=== PATIENT | female | born 1980 | race African-American/Black ===

== ENCOUNTER 2018-09-06 00:13 | Emergency (ER) | payer MEDICARE, MEDICAID ==
[2018-09-06] MEDS ORDERED: LIDOCAINE 2% VISCOUS SOLN 20 ML UDCUP PO ONE (01:15)
[2018-09-06] MEDS ORDERED: MAG HYDROX/AL HYDROX/SIMETH SUSP 30 ML UDCUP PO ONE (01:15)
[2018-09-06] MEDS ORDERED: METOCLOPRAMIDE HCL ORAL SOLN 10 MG/10 ML UDCUP PO ONE (01:15)
--- NOTE | 2018-09-06 01:24 | ER Document Report ---
ED General - General Chief Complaint: Abdominal Pain Stated Complaint: ABDOMINAL PAIN Time Seen by Provider: 09/06/18 01:07 Mode of Arrival: Ambulatory Information source: Patient Notes: 38-year-old female presents emergency department complaints of epigastric abdominal pain that started around 7 PM. She describes the pain as a sharp and stabbing sensation located in the epigastric area. She denies any radiation of the pain. She denies any alleviating or exacerbating factors. She has not taken any medication prior to arrival. Patient states that she has a history of hypertension but denies any other medications. She denies any surgeries. Patient states that over the last couple of days she has had some intermittent chest pain associated with the epigastric pain. Denies nausea, vomiting, diarrhea, constipation, dysuria, hematuria. She does admit to having some increased urine frequency. LMP in June. - HPI Onset: This evening Onset/Duration: Persistent Quality of pain: Sharp, Stabbing Severity: Mild Associated symptoms: None Exacerbated by: Denies Relieved by: Denies Similar symptoms previously: No Recently seen / treated by doctor: No - Related Data Allergies/Adverse Reactions: Penicillins Adverse Reaction (Verified 09/06/18 01:19) Past Medical History - General Information source: Patient - Social History Smoking Status: Current Every Day Smoker Family History: Reviewed & Not Pertinent Review of Systems - Review of Systems Constitutional: No symptoms reported EENT: No symptoms reported Cardiovascular: Chest pain Respiratory: No symptoms reported Gastrointestinal: Abdominal pain Genitourinary: Frequency Female Genitourinary: No symptoms reported Musculoskeletal: No symptoms reported Skin: No symptoms reported Hematologic/Lymphatic: No symptoms reported Neurological/Psychological: No symptoms reported -: Yes All other systems reviewed and negative Physical Exam - Vital signs Vitals: Temp Pulse Resp BP Pulse Ox 97.7 F 90 19 149/100 H 98 09/06/18 00:20 09/06/18 00:20 09/06/18 00:20 09/06/18 00:20 09/06/18 00:20 - Notes Notes: PHYSICAL EXAMINATION: GENERAL: Well-appearing, well-nourished and in no acute distress. HEAD: Atraumatic, normocephalic. EYES: Pupils equal round and reactive to light, extraocular movements intact, conjunctiva are normal. ENT: Nares patent, oropharynx clear without exudates. Moist mucous membranes. NECK: Normal range of motion, supple without lymphadenopathy LUNGS: Breath sounds clear to auscultation bilaterally and equal. No wheezes rales or rhonchi. HEART: Regular rate and rhythm without murmurs ABDOMEN: Soft, tenderness to palpation in the epigastric area, LUQ. No rebound or guarding. Female : Patient declines pelvic exam. Musculoskeletal: Normal range of motion, no pitting or edema. No cyanosis. NEUROLOGICAL: Cranial nerves grossly intact. Normal speech, normal gait. Normal sensory, motor exams PSYCH: Normal mood, normal affect. SKIN: Warm, Dry, normal turgor, no rashes or lesions noted. Course - Re-evaluation Re-evalutation: 09/06/18 01:47 EKG: Ventricular rate 79, HI interval 172, castration 76, QTc 413, sinus rhythm, no ST segment elevation or depression. 09/06/18 04:00 Labs and imaging obtained. test came back positive. Patient informed of these findings. Says that she had a negative test in June. She keeps track of her menstrual cycles and when has intercourse. Patient says she last had intercourse on 08/20/18. Patient denies vaginal bleeding. She was given a GI cocktail for her epigastric discomfort on arrival. On re-evaluation, patient says this alleviated her pain. Currently pain free. Patient upset because she hasn't gone for her US yet. Patient next to go to US. She says she 'll stay for the US. Bacteria in the urine. I will start keflex. Patient says her allergy to penicillin was pain. No anaphylaxis symptoms. I instructed the patient to follow up with OB, to take the medication as directed, and to return for worsening symptoms. 09/06/18 04:19 Patient turned over to Dr. Danielle with US pending. - Vital Signs Vital signs: Temp Pulse Resp BP Pulse Ox 97.7 F 90 19 149/100 H 98 09/06/18 00:20 09/06/18 00:20 09/06/18 00:20 09/06/18 00:20 09/06/18 00:20 - Laboratory Result Diagrams: 09/06/18 01:30 09/06/18 01:30 Laboratory results interpreted by me: 09/06/18 09/06/18 09/06/18 01:30 01:30 01:30 WBC 10.9 H Hgb 10.2 L Hct 32.1 L MCV 64 L MCH 20.3 L MCHC 31.6 L RDW 18.7 H Chloride 108 H AST 12 L Beta HCG, Quant Urine Urobilinogen 2.0 H Ur Leukocyte Esterase TRACE H Urine Ascorbic Acid 40 H Urine HCG, Qual POSITIVE H 09/06/18 01:30 WBC Hgb Hct MCV MCH MCHC RDW Chloride AST Beta HCG, Quant 712247.00 H Urine Urobilinogen Ur Leukocyte Esterase Urine Ascorbic Acid Urine HCG, Qual Discharge - Discharge Clinical Impression: Antepartum asymptomatic bacteriuria Qualifiers: Weeks of gestation: unspecified Qualified Code(s): Z34.90 - Encounter for supervision of normal , unspecified, unspecified trimester GERD (gastroesophageal reflux disease) Qualifiers: Esophagitis presence: esophagitis presence not specified Qualified Code(s): K21.9 - Gastro-esophageal reflux disease without esophagitis Condition: Good Disposition: HOME, SELF-CARE Instructions: Reflux Disease (GERD) ([facility]) Prescriptions: Cephalexin Monohydrate [Keflex 500 mg Capsule] 500 mg PO BID 5 Days capsule Referrals: AGAPITO PITTS MD [Primary Care Provider] - Follow up as needed GARRISON MARY MD [ACTIVE STAFF] - Follow up as needed
[2018-09-06 01:55] LABS: ABSOLUTE BASOPHILS # (AUTO) 0.1 10^3/uL (0.0-0.2); ABSOLUTE EOSINOPHILS # (AUTO) 0.1 10^3/uL (0.0-0.6); ABSOLUTE LYMPHOCYTES (AUTO) 2.2 10^3/uL (0.5-4.7); ABSOLUTE MONOCYTES (AUTO) 0.9 10^3/uL (0.1-1.4); ABSOLUTE NEUT (AUTO) 7.7 10^3/uL (1.7-8.2); BASOPHILS % (AUTO) 0.6 % (0-2); EOSINOPHILS % (AUTO) 1.3 % (0-6); HEMATOCRIT 32.1 % (36.0-47.0); HEMOGLOBIN 10.2 g/dL (12.0-15.5); LYMPHOCYTES % (AUTO) 19.8 % (13-45); MEAN CORPUSCULAR HEMOGLOBIN 20.3 pg (27.0-33.4); MEAN CORPUSCULAR HGB CONC 31.6 g/dL (32.0-36.0); MONOCYTES % (AUTO) 8.2 % (3-13); PLATELET COUNT 315 10^3/uL (150-450); RED CELL DISTRIBUTION WIDTH 18.7 % (11.5-14.0); SEGMENTED NEUTROPHILS % (AUTO) 70.1 % (42-78); TOTAL CELLS COUNTED % (AUTO) 100 %; WHITE BLOOD COUNT 10.9 10^3/uL (4.0-10.5)
[2018-09-06 01:58] LABS: APPEARANCE,URINE CLOUDY; BILIRUBIN,URINE NEGATIVE (NEGATIVE); COLOR,URINE YELLOW; GLUCOSE, URINE NEGATIVE (NEGATIVE); KETONES,URINE NEGATIVE (NEGATIVE); LEUKOCYTE ESTERASE,URINE TRACE (NEGATIVE); NITRITE,URINE NEGATIVE (NEGATIVE); PROTEIN,URINE NEGATIVE (NEGATIVE)
[2018-09-06 02:07] LABS: ALANINE AMINOTRANSFERASE 13 U/L (9-52); ALBUMIN 3.7 g/dL (3.5-5.0); ALKALINE PHOSPHATASE 62 U/L (38-126); ANION GAP 7 (5-19); ASPARTATE AMINO TRANSFERASE 12 U/L (14-36); BILIRUBIN,DIRECT 0.2 mg/dL (0.0-0.4); BILIRUBIN,TOTAL 0.3 mg/dL (0.2-1.3); BLOOD UREA NITROGEN 16 mg/dL (7-20); CALCIUM 9.4 mg/dL (8.4-10.2); CARBON DIOXIDE 24 mmol/L (22-30); CHLORIDE 108 mmol/L (98-107); GLUCOSE 90 mg/dL (75-110); LIPASE 177.1 U/L (23-300); POTASSIUM 4.5 mmol/L (3.6-5.0); SODIUM 138.7 mmol/L (137-145); TOTAL PROTEIN 6.9 g/dL (6.3-8.2)
[2018-09-06 02:26] LABS: OVALOCYTES SLIGHT; PLATELET COMMENT ADEQUATE; TEAR DROP CELLS SLIGHT
[2018-09-06 02:27] LABS: ANISOCYTOSIS 2+; POIKILOCYTOSIS SLIGHT; POLYCHROMASIA SLIGHT
[2018-09-06 02:28] LABS: MEAN CORPUSCULAR VOLUME 64 fl (80-97)
--- NOTE | 2018-09-06 04:52 | RADIOLOGY REPORT (SQ) ---
EXAM DESCRIPTION: US TRANSVAGINAL COMPLETED DATE/TME: 09/06/2018 02:20 CLINICAL HISTORY: 38 years, Female, abdominal pain COMPARISON: None. TECHNIQUE: Transverse and longitudinal transvaginal and transabdominal sonographic images of the pelvis and a first trimester patient LIMITATIONS: None. FINDINGS: The uterus measures 12.5 x 12.4 x 11.2 cm. There is a single, live intrauterine gestation with current ultrasound age 10 weeks 3 days. pole is present with heart tones obtained at 175 bpm. Assessment of the placenta and amniotic fluid volume not performed due to early gestational age. Heterogeneous echotexture to the maternal myometrium could reflect fibroid change. The maternal left ovary is not well seen likely due to its position in the pelvis. The right ovary measures 3.2 x 2.5 x 1.9 cm. Probable corpus luteal cyst of the right ovary measuring 2.2 x 2.1 cm. Normal flow to the right ovary. No free fluid.. IMPRESSION: Single live intrauterine gestation with current ultrasound age 10 weeks 3 days. Nonemergent follow-up recommended copyright 2010 [employer]- All Rights Reserved
[2018-09-06 05:38] VITALS: BP 130/72
--- NOTE | 2018-09-06 07:58 | EKG REPORT ---
SEVERITY:- NORMAL ECG - SINUS RHYTHM : Confirmed by: Michele Genao MD 06-Sep-2018 07:57:12
[2018-09-06 15:39] LABS: PATH REVIEW PATHOLOGIST REVIEWED
== END 2018-09-06 05:39 | disposition home or self-care (01) ==
LOC: ER 00:13
DX: O99.619 Diseases of the digestive system complicating pregnancy, unspecified trimester (principal); K21.9 Gastro-esophageal reflux disease without esophagitis; O26.899 Other specified pregnancy related conditions, unspecified trimester; R82.71 Bacteriuria; R10.13 Epigastric pain; R07.9 Chest pain, unspecified; R35.0 Frequency of micturition; O99.330 Smoking (tobacco) complicating pregnancy, unspecified trimester; Z3A.00 Weeks of gestation of pregnancy not specified
CPT/HCPCS: 93005; 99284; 36415; 84702; 83690; 85025; 81025; 80053; 81001; 84484; 76817; 93976; 93010; J3490; A9270

== ENCOUNTER 2019-03-02 10:39 | Outpatient (CLI) | payer MEDICARE, MEDICAID | END 2019-03-02 11:23 | disposition home or self-care (01) | LOC: LC 10:39 | PROVIDERS: ATTEND Obstetrics & Gynecology | PROC: 4A1HXCZ Monitoring of Products of Conception, Cardiac Rate, External Approach (ICD-10-PCS; principal; 2019-03-02) | DX: O09.523 Supervision of elderly multigravida, third trimester (principal); Z3A.35 35 weeks gestation of pregnancy | CPT/HCPCS: 59025 ==

== ENCOUNTER 2019-03-09 10:33 | Outpatient (CLI) | payer MEDICARE, MEDICAID ==
[2019-03-09 12:13] LABS: ABSOLUTE EOSINOPHILS # (AUTO) 0.1 10^3/uL (0.0-0.6); ABSOLUTE LYMPHOCYTES (AUTO) 1.4 10^3/uL (0.5-4.7); ABSOLUTE MONOCYTES (AUTO) 0.9 10^3/uL (0.1-1.4); ABSOLUTE NEUT (AUTO) 9.4 10^3/uL (1.7-8.2); BASOPHILS % (AUTO) 0.3 % (0-2); EOSINOPHILS % (AUTO) 0.8 % (0-6); HEMATOCRIT 35.1 % (36.0-47.0); HEMOGLOBIN 10.9 g/dL (12.0-15.5); LYMPHOCYTES % (AUTO) 11.6 % (13-45); MEAN CORPUSCULAR HEMOGLOBIN 23.5 pg (27.0-33.4); MEAN CORPUSCULAR VOLUME 76 fl (80-97); MONOCYTES % (AUTO) 7.4 % (3-13); PLATELET COUNT 282 10^3/uL (150-450); RED BLOOD COUNT 4.63 10^6/uL (3.72-5.28); RED CELL DISTRIBUTION WIDTH 17.4 % (11.5-14.0); SEGMENTED NEUTROPHILS % (AUTO) 79.9 % (42-78); TOTAL CELLS COUNTED % (AUTO) 100 %; WHITE BLOOD COUNT 11.8 10^3/uL (4.0-10.5)
[2019-03-09 12:28] LABS: ALANINE AMINOTRANSFERASE 17 U/L (9-52); ALBUMIN 2.9 g/dL (3.5-5.0); ALKALINE PHOSPHATASE 154 U/L (38-126); ANION GAP 10 (5-19); ASPARTATE AMINO TRANSFERASE 19 U/L (14-36); BILIRUBIN,DIRECT 0.2 mg/dL (0.0-0.4); BILIRUBIN,TOTAL 0.2 mg/dL (0.2-1.3); BLOOD UREA NITROGEN 10 mg/dL (7-20); CARBON DIOXIDE 19 mmol/L (22-30); CHLORIDE 106 mmol/L (98-107); GLUCOSE 105 mg/dL (75-110); POTASSIUM 3.9 mmol/L (3.6-5.0); TOTAL PROTEIN 5.8 g/dL (6.3-8.2)
--- NOTE | 2019-03-09 12:50 | Non Stress Test Report ---
Non Stress Test Datetime Report Generated by CPN: 03/09/2019 12:50 DEMOGRAPHIC EGA NST: 36.5 INDICATION Indication for Study: Ordered by Provider VITAL SIGNS Temperature - NST: 98.0 RESP - NST: 16 MONITORING Monitor Explained: Monitor Explained; Test Explained; Patient Verbalized Understanding Time on Monitor: 03/09/2019 10:50 Time off Monitor: 03/09/2019 11:27 NST Duration: 37 NST INTERVENTIONS NST Interventions: PO Hydration Physician Notified NST: A. Christensen CNM BABY A Movement : Present Contraction Frequency : none FHR Baseline : 145 Accelerations : 15X15 Decelerations : None Variability : Moderate 6-25bpm NST Review: Meets Criteria for Reactive NST NST Review and Verified By : Irene Simental RN NST Results: Reactive NST REPORT Report Trigger: Send Report
[2019-03-12 14:07] LABS: URINE PROTEIN 9.8 mg/dL (<12)
[2019-03-12 14:12] LABS: 24 HOUR URINE PROTEIN RESULT 134 mg/day (42-225)
== END 2019-03-09 12:45 | disposition home or self-care (01) ==
LOC: LC 10:33
PROVIDERS: ATTEND Obstetrics & Gynecology Gynecology
PROC: 4A1HXCZ Monitoring of Products of Conception, Cardiac Rate, External Approach (ICD-10-PCS; principal; 2019-03-09)
DX: O10.913 Unspecified pre-existing hypertension complicating pregnancy, third trimester (principal); O09.523 Supervision of elderly multigravida, third trimester; Z3A.36 36 weeks gestation of pregnancy
CPT/HCPCS: 36415; 59025; 80053; 83615; 84156; 84550; 85025

== ENCOUNTER 2019-03-26 22:30 | Inpatient (IN) | payer MEDICARE, MEDICAID ==
[2019-03-26] MEDS ORDERED: DINOPROSTONE 10 MG VAGINAL INSERT.SR ONE (23:18)
[2019-03-26 23:26] LABS: ABSOLUTE BASOPHILS # (AUTO) 0.1 10^3/uL (0.0-0.2); ABSOLUTE EOSINOPHILS # (AUTO) 0.1 10^3/uL (0.0-0.6); ABSOLUTE LYMPHOCYTES (AUTO) 1.8 10^3/uL (0.5-4.7); ABSOLUTE MONOCYTES (AUTO) 1.2 10^3/uL (0.1-1.4); ABSOLUTE NEUT (AUTO) 9.6 10^3/uL (1.7-8.2); BASOPHILS % (AUTO) 0.9 % (0-2); HEMOGLOBIN 10.9 g/dL (12.0-15.5); LYMPHOCYTES % (AUTO) 13.7 % (13-45); MEAN CORPUSCULAR HEMOGLOBIN 23.9 pg (27.0-33.4); MEAN CORPUSCULAR HGB CONC 31.9 g/dL (32.0-36.0); MEAN CORPUSCULAR VOLUME 75 fl (80-97); MONOCYTES % (AUTO) 9.3 % (3-13); PLATELET COUNT 258 10^3/uL (150-450); RED BLOOD COUNT 4.55 10^6/uL (3.72-5.28); RED CELL DISTRIBUTION WIDTH 17.4 % (11.5-14.0); SEGMENTED NEUTROPHILS % (AUTO) 75.1 % (42-78); TOTAL CELLS COUNTED % (AUTO) 100 %; WHITE BLOOD COUNT 12.8 10^3/uL (4.0-10.5)
[2019-03-27] MEDS ORDERED: OXYTOCIN/NORMAL SALINE 20 UNIT/1,000 ML RTUINJ IV PRN ×2 (01:19→18:33)
[2019-03-27] MEDS ORDERED: ACETAMINOPHEN 325 MG TABLET PO PRN ×2 (01:19→18:33)
[2019-03-27] MEDS ORDERED: MAG HYDROX/AL HYDROX/SIMETH SUSP 30 ML UDCUP PO PRN (01:19)
[2019-03-27] MEDS ORDERED: DINOPROSTONE 10 MG VAGINAL INSERT.SR PV ONE (01:19)
[2019-03-27] MEDS ORDERED: RINGERS SOLUTION,LACTATED 300 ML IV ONE (01:19)
[2019-03-27] MEDS ORDERED: ZOLPIDEM TARTRATE 5 MG TABLET PO PRN (01:19)
[2019-03-27] MEDS: RINGERS SOLUTION,LACTATED 1,000 ML IV PRN ×2 (03:41→23:38)
--- NOTE | 2019-03-27 04:18 | Admission Physical ---
Datetime Report Generated by CPN: 03/27/2019 04:18 CURRENT ADMISSION Chief Complaint: Scheduled Induction of Labor Indication for Induction: Gestational HTN Admit Impression : Term, Intrauterine ; Induction of Labor Admit Plan: Admit to Unit; Initiate Labor Induction Protocol ALLERGIES Medication Allergies: Yes Medication Allergies: Penicillins (03/26/2019) Latex: No Latex Allergies Food Allergies: None Environmental Allergies: None OBSTETRICAL HISTORY EDC: 04/01/2019 00:00 : 4 Para: 2 Term: 2 : 0 SAB: 1 IAB: 1 Ectopic: 0 Livin Cesareans: 0 VBACs: 0 Multiple Births: 0 Gestational Diabetes: No Rh Sensitization: No Incompetent Cervix: No SHAGUFTA: No Infertility: No ART Treatment: No Uterine Anomaly: No IUGR: No Hx Previous C/S: No Macrosomia: No Hx Loss/Stillborn: No PIH: Yes Hx : No Placenta Previa/Abruption: No Depression/PP Depression: No PTL/PROM: No Post Hemorrhage: No Current Procedures: Ultrasound; NST Obstetrical History Comments: G1: 1994 SAB G2: 1995 39 wks 9lbs male vaginal G3: 2001 42 wks 8lbs male vaginal G4 - current , chronic hypertension on labetalol SEE RECORDS Alcohol: No Marijuana : No Cocaine: No Other Illicit Drugs: No Cigarettes: Never Smoker. 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: No Heart Disease: No Hosp/Surgery: No Autoimmune Disorder: No Anesthetic Complications: No Kidney Disease: No Abnormal Pap Smear: No Neuro/Epilepsy: No Psychiatric Disorders: No Other Medical Diseases: No Hepatitis/Liver Disease: No Significant Family History: No Varicosities/Phlebitis: No Trauma/Violence : No Thyroid Dysfunction: No Medical History Comments: MS, htn, ADD, crohn's disease, obesity, leiomyoma of uterus, thalassemia minor INFECTIOUS HISTORY Gonorrhea: No Genital Herpes: No Chlamydia: No Tuberculosis: No Syphilis: No Hepatitis: No HIV/AIDS Exposure: No Rash or Viral Illness: No HPV: No PHYSICAL EXAM General: Normal HEENT: Normal Neurologic: Normal Thyroid: Normal Heart: Normal Lungs: Normal Breast: Deferred Back: Normal Abdomen: Normal Genitourinary Exam: Normal Extremities: Normal DTRs: Normal Pelvic Type: Adequate Vital Signs: Reviewed VAGINAL EXAM Dilatation: 1 Effacement: 70 Station: -1 MEMBRANES Pooling: Negative Membranes: Intact FETUS A EGA: 39.2 Monitoring: External US FHR- Baseline: 130 Presentation: Vertex Admit Comment: Pt reports MS, wants btl PLANS FOR LABOR AND DELIVERY Labor and Delivery: None Pain Management: Epidural Feeding Preference: Formula Benefit of Breast Feed Discussed: Yes Circumcision: N/A INFORMED CONSENT Signature: with User ID: [email or web address]
[2019-03-27 06:37] LABS: URINE AMPHETAMINES SCREEN NEGATIVE; URINE BARBITURATES SCREEN NEGATIVE; URINE BENZODIAZEPINES SCREEN NEGATIVE; URINE COCAINE SCREEN NEGATIVE; URINE MARIJUANA (THC) SCREEN NEGATIVE; URINE METHADONE SCREEN NEGATIVE; URINE PHENCYCLIDINE SCREEN NEGATIVE
[2019-03-27] MEDS ORDERED: LABETALOL HCL 200 MG TABLET PO ONE (08:58)
[2019-03-27] MEDS ORDERED: LABETALOL HCL 200 MG TABLET ONE (09:00)
[2019-03-27] MEDS ORDERED: OXYTOCIN/NORMAL SALINE 20 UNIT/1,000 ML RTUINJ ONE ×2 (11:06→19:36)
[2019-03-27] MEDS ORDERED: LIDOCAINE 1% INJ-PF (10 MG/ML) 30 ML SDV ONE (11:06)
[2019-03-27] MEDS ORDERED: MISOPROSTOL 0.2 MG TABLET ONE (11:06)
[2019-03-27] MEDS ORDERED: EPHEDRINE SULFATE INJ 50 MG/1 ML AMPULE ONE (14:31)
[2019-03-27] MEDS ORDERED: FENTANYL/BUPIVACAINE/NS/PF 300 MCG/150 ML RTUINJ EPI ONE (14:32)
[2019-03-27] MEDS ORDERED: BUPIVACAINE HCL 0.25 % INJ/PF (2.5 MG/1 ML) 30 ML VIAL ONE (14:32)
[2019-03-27 15:01] LABS: ABSOLUTE BASOPHILS # (AUTO) 0.1 10^3/uL (0.0-0.2); ABSOLUTE EOSINOPHILS # (AUTO) 0.1 10^3/uL (0.0-0.6); ABSOLUTE LYMPHOCYTES (AUTO) 1.1 10^3/uL (0.5-4.7); ABSOLUTE NEUT (AUTO) 8.3 10^3/uL (1.7-8.2); BASOPHILS % (AUTO) 1.4 % (0-2); EOSINOPHILS % (AUTO) 0.8 % (0-6); HEMATOCRIT 35.8 % (36.0-47.0); HEMOGLOBIN 11.5 g/dL (12.0-15.5); LYMPHOCYTES % (AUTO) 10.7 % (13-45); MEAN CORPUSCULAR HEMOGLOBIN 24.1 pg (27.0-33.4); MEAN CORPUSCULAR VOLUME 75 fl (80-97); MONOCYTES % (AUTO) 9.8 % (3-13); PLATELET COUNT 235 10^3/uL (150-450); RED BLOOD COUNT 4.76 10^6/uL (3.72-5.28); RED CELL DISTRIBUTION WIDTH 17.3 % (11.5-14.0); SEGMENTED NEUTROPHILS % (AUTO) 77.3 % (42-78); TOTAL CELLS COUNTED % (AUTO) 100 %; WHITE BLOOD COUNT 10.7 10^3/uL (4.0-10.5)
[2019-03-27 15:27] LABS: ALANINE AMINOTRANSFERASE 19 U/L (9-52); ALBUMIN 3.3 g/dL (3.5-5.0); ALKALINE PHOSPHATASE 193 U/L (38-126); ANION GAP 6 (5-19); ASPARTATE AMINO TRANSFERASE 20 U/L (14-36); BILIRUBIN,DIRECT 0.2 mg/dL (0.0-0.4); BILIRUBIN,TOTAL 0.5 mg/dL (0.2-1.3); BLOOD UREA NITROGEN 9 mg/dL (7-20); CALCIUM 9.2 mg/dL (8.4-10.2); CARBON DIOXIDE 23 mmol/L (22-30); CHLORIDE 106 mmol/L (98-107); POTASSIUM 4.3 mmol/L (3.6-5.0); TOTAL PROTEIN 6.5 g/dL (6.3-8.2); URIC ACID 5.8 mg/dL (2.5-7.0)
[2019-03-27] MEDS ORDERED: PHENYLEPHRINE HCL INJ/PF 10 MG/1 ML SDV ONE (15:29)
[2019-03-27] MEDS ORDERED: FENTANYL CITRATE INJ/PF 100 MCG/2 ML AMPUL ONE (15:29)
[2019-03-27 15:30] LABS: GLUCOSE 69 mg/dL (75-110)
[2019-03-27] MEDS ORDERED: CITRIC ACID/SODIUM CITRATE ORAL SOLN 15 ML UDCUP ONE (17:23)
[2019-03-27] MEDS ORDERED: AZITHROMYCIN INJ 500 MG VIAL IV ONE (17:23)
[2019-03-27] MEDS ORDERED: LIDOCAINE 2%/EPINEPHRINE INJ 20 ML VIAL ONE (17:52)
[2019-03-27] MEDS ORDERED: MEASLES,MUMPS&RUBELLA VACC/PF 0.5 ML VIAL SUBCUT PRN (18:33)
[2019-03-27] MEDS ORDERED: SIMETHICONE 80 MG TAB.CHEW PO PRN (18:33)
[2019-03-27] MEDS ORDERED: PROMETHAZINE HCL INJ 25 MG/1 ML VIAL IV PRN (18:33)
[2019-03-27] MEDS ORDERED: OXYCODONE-ACETAMINOPHEN 5-325 MG TABLET PO PRN (18:33)
[2019-03-27] MEDS ORDERED: DIPH/PERTUSS(ACELL)/TETANUS VAC/PF 0.5 ML SYR (>=10YO) IM PRN (18:33)
[2019-03-27] MEDS ORDERED: HYDROMORPHONE HCL INJ/PF 2 MG/ML AMPULE IV PRN (18:33)
[2019-03-27] MEDS ORDERED: ACETAMINOPHEN 1,000 MG/100 ML RTUPB IV PRN (18:33)
--- NOTE | 2019-03-27 19:24 | Operative Report ---
Operative Report DATE OF SURGERY: 03/27/19 Operative Report: primary c/section PREOPERATIVE DIAGNOSIS: IUP @ 40 3/, Pre eclampsia, multiple sclerosis, nonreassuring heart tones, undesired fertility POSTOPERATIVE DIAGNOSIS: same OPERATION: section with Trufant tubal ligation SURGEON: SHREE NOBLE ANESTHESIA: Epidural TISSUE REMOVED OR ALTERED: Placenta and bilateral fallopian tube segments COMPLICATIONS: None ESTIMATED BLOOD LOSS: 800 INTRAOPERATIVE FINDINGS: Multiple fibroids within the uterus and endometrium, filmy adhesions on the posterior side of the uterus, male infant in cephalic presentation with Apgars of 9 and 9 PROCEDURE: PROCEDURE IN DETAIL: The patient was taken to the operating room, prepared and draped in a normal sterile fashion in a supine position with a leftward tilt. A transverse skin incision was made with a scalpel and carried through to the underlying layer of fascia with the same scalpel. The fascia was excised in the midline and extended laterally with Ghada. The fascia was then dissected from the rectus muscle sharply with Ghada and the rectus muscle was divided and the peritoneal cavity was entered sharply with the same Metzenbaum. With good visualization of the bladder and the uterus the bladder blade was inserted. The hysterotomy was nicked with a scalpel and extended laterally with surgeon finger fraction. The was then delivered atraumatically. The nose and mouth were suctioned with a suction bulb, the cord was clamped and cut and handed off to awaiting pediatricians. Cord blood was collected. The placenta was removed manually. The uterus was exteriorized and cleared of clots and debris. The hysterotomy was closed with 0 Monocryl in a running, locked fashion. A second layer of the same suture was used to imbricate to ensure hemostasis. Attention was then turned to the tubal ligation where the left fallopian tube was grasped with a Alma and the mesosalpinx was divided using the Bovie. A 3-1/2 cm segment of fallopian tube was tied off with 2 pieces of 2-0 chromic. The intermediate segment was then ligated using Metzenbaums and the pedicles were made hemostatic with the Bovie. This process was repeated on the contralateral fallopian tube with good hemostasis maintained. The uterus was returned to the abdomen and peritoneal cavity was cleared of clots and debris. A small vessel on the mesosalpinx was noted to be bleeding and this was tied off with a piece of 2-0 chromic suture. the rectus muscle and peritoneum were repaired with mattress stitch of 2-0 Chromic. The fascia was closed with 0-Vicryl. The subcutaneous layer was closed with plain catgut and the skin was closed with 4-0 Vicryl. The patient tolerated the procedure well. Sponge, lap, and needle counts correct x2 and the patient was taken to recovery in stable condition.
[2019-03-27] MEDS ORDERED: ACETAMINOPHEN 1,000 MG/100 ML RTUPB IV ONE (19:35)
[2019-03-27] MEDS ORDERED: KETOROLAC TROMETHAMINE INJ/PF 30 MG/1 ML SDV ONE (19:56)
[2019-03-27] MEDS: KETOROLAC TROMETHAMINE INJ/PF 30 MG/1 ML SDV IV SCH (20:22)
[2019-03-27] MEDS ORDERED: CLINDAMYCIN 900 MG/D5W RTU 900 MG/50 ML RTUPB IV SCH (22:00)
[2019-03-28] MEDS ORDERED: CLINDAMYCIN 900 MG/D5W RTU 900 MG/50 ML RTUPB IV SCH (02:00)
[2019-03-28] MEDS: KETOROLAC TROMETHAMINE INJ/PF 30 MG/1 ML SDV IV SCH (04:13)
[2019-03-28] MEDS ORDERED: KETOROLAC TROMETHAMINE INJ/PF 30 MG/1 ML SDV IV SCH ×2 (06:00→12:00)
[2019-03-28 07:15] LABS: HEMATOCRIT 29.8 % (36.0-47.0); HEMOGLOBIN 9.7 g/dL (12.0-15.5); MEAN CORPUSCULAR HEMOGLOBIN 24.6 pg (27.0-33.4); MEAN CORPUSCULAR HGB CONC 32.6 g/dL (32.0-36.0); MEAN CORPUSCULAR VOLUME 75 fl (80-97); PLATELET COUNT 216 10^3/uL (150-450); RED BLOOD COUNT 3.96 10^6/uL (3.72-5.28); WHITE BLOOD COUNT 13.6 10^3/uL (4.0-10.5)
--- NOTE | 2019-03-28 08:30 | Delivery Summary ---
Del Sum A-C Datetime Report Generated by CPN: 03/28/2019 08:29 DELIVERY PERSONNEL DELIVERY PERSONNEL: [id number] Delivery Doctor:: Maribel Hernadez MD Delivery Doctor:: Maribel Hernadez MD Anesthesiologist:: Gisella Jordan MD Anesthesiologist:: Gisella Jordan MD JALOUSIE INSTALLER:: monalisa section supervisor JALOUSIE INSTALLER:: monalisa Labor and Delivery Nurse:: Lisa Sandoval RN Hydropulper:: Lisa Sandoval RN Hydropulper:: Lisa Sandoval RN Theater Projectionist:: Dr. Margarito Dalton Seafood Farmer/ONLINE AFFILIATE MARKETING MANAGER: Celena Briggs ST Seafood Farmer/ONLINE AFFILIATE MARKETING MANAGER: ST Barbra Seafood Farmer/ONLINE AFFILIATE MARKETING MANAGER: Sarah Celaya CST Seafood Farmer/ONLINE AFFILIATE MARKETING MANAGER: Sarah Celaya CST MATERNAL INFORMATION Delivery Anesthesia: Epidural Medications After Delivery: Pitocin Drip 20 Units/1000ml NSS Delivery QBL: 869 Delivery QBL Comment: 400 fluid Maternal Complications: Other Complication Details: obesity LABOR SUMMARY EDC: 04/01/2019 00:00 No. Babies in Womb: 1 Attempted: No Labor Anesthesia: Epidural LABOR INFORMATION Reason for Induction: Chronic Secondary Hypertension (Specify Cause) Onset of Labor: 03/27/2019 11:00 Cervical Ripening Agents: Cervidil Oxytocin: Induction Group B Beta Strep: Negative Antibiotics # of Doses: 0 Antibiotics Time of Last Dose: 0 Name of Antibiotic Given: 0 Steroids Given: None Reason Steroids Not Administered: Not Applicable MEMBRANES Membranes Rupture Method: Artificial Rupture of Membranes: 03/27/2019 10:45 Length of Rupture (hr): 7.25 Amniotic Fluid Color: Clear Amniotic Fluid Amount: Large Amniotic Fluid Odor: None STAGES OF LABOR Stage 3 hr: 0 Stage 3 min: 1 Total Time in Labor hr: 7 Total Time in Labor min: 1 VAGINAL DELIVERY Sponge Count Correct: N/A Sharps Count Correct: N/A CSECTION DELIVERY Primary Indication: Nonreassuring Status Other Primary Indication: Abruption CSection Urgency: Emergency CSection Incidence: Primary Labor: Labor Elective: N/A CSection Incision: Lower Uterine Transverse Other Sterilization Procedure: suture BABY A INFORMATION Delivery Date/Time: 03/27/2019 18:00 Method of Delivery: Born in Route : No : N/A Forceps: N/A Vacuum Extraction: N/A Shoulder Dystocia : No PRESENTATION/POSITION BABY A Presentation: Cephalic Presentation: Cephalic Presentation: Cephalic Presentation: Cephalic Cephalic Presentation: Vertex Vertex Position: Left Occipital Anterior Breech Presentation: N/A PLACENTA INFORMATION BABY A Placenta Delivery Time : 03/27/2019 18:01 Placenta Method of Delivery: Manual Removal Placenta Status: Delivered SCORES BABY A Heart Rate 1 min: >100 bpm Resp Effort 1 min: Good Cry Reflex Irritability 1 min: Cough or Sneeze or Pulls Away Muscle Tone 1 min: Active Motion Color 1 min: Blue/Pale Resuscitation Effort 1 min: Tactile Stimulation SCORE 1 MIN: 8 Heart Rate 5 min: >100 bpm Resp Effort 5 min: Good Cry Reflex Irritability 5 min: Cough or Sneeze or Pulls Away Muscle Tone 5 min: Active Motion Color 5 min: Body Gully, Extremities Blue Resuscitation Effort 5 min: Tactile Stimulation SCORE 5 MIN: 9 INFORMATION BABY A Gestational Age at Delivery: 39.2 Gestational Status: Full Term- 39- 40.6 Weeks Infant Outcome : Liveborn Infant Condition : Stable Sex: Female IDENTIFICATION BABY A Infant Verification Date/Time: 03/27/2019 19:46 ID Band Number: [id number] Mother's Name Verified: Yes RN Verifying : R Slick RN/B Roulund RN WEIGHT/LENGTH BABY A Infant Birthweight (gm): 2870 Weight (lb): 6 Infant Weight (oz): 5 Infant Length (in): 19.00 Length (cm): 48.26 CORD INFORMATION BABY A No. Cord Vessels: 3 Nuchal Cord : N/A Cord Blood Taken: Yes-For Storage (Mom's Blood type +) Suction: Mouth; Nose ASSESSMENT BABY A Skin to Skin: Yes BABY B INFORMATION : N/A
[2019-03-28] MEDS: CLINDAMYCIN 900 MG/D5W RTU 900 MG/50 ML RTUPB IV SCH ×2 (08:35→17:03)
[2019-03-28] MEDS: DOCUSATE SODIUM 100 MG CAPSULE PO SCH ×2 (09:50→17:04)
[2019-03-28] MEDS: PRENATAL VITAMIN W DHA CAPSULE PO SCH ×2 (09:50→11:29)
--- NOTE | 2019-03-28 10:49 | PDOC PROGRESS REPORT ---
Subjective-OB Progress Note for:: 03/28/19 Subjective: Doing well, pain getting better, bottle feeding, walking, eating well, voiding, TEDS on Physical Exam (OB) Vital Signs: Temp Pulse Resp BP Pulse Ox 98.8 F 88 16 142/77 H 97 03/28/19 08:16 03/28/19 08:16 03/28/19 08:16 03/28/19 08:16 03/28/19 08:16 Intake & Output 03/27/19 03/28/19 03/29/19 06:59 06:59 06:59 Intake Total 1000 50 Output Total 250 350 Balance -250 650 50 Weight 137.2 kg - PIH/Pre-Eclampsia DTR's: 1 + Clonus: Negative Headache: Absent Epigastric Pain: No Visual Changes: No - Dressing Removed: No - opsite Incision: Draining - Lochia Lochia Amount: Small 10-25 ml Lochia Color: Rubra/Red - Abdomen Description: Tender, Soft Fundal Description: Firm, Midline Fundal Height: u/u - u/2 Objective-Diagnostic Laboratory: 03/28/19 06:50 03/27/19 14:37 03/27/19 03/27/19 03/28/19 14:37 14:37 06:50 WBC 10.7 H 13.6 H RBC 4.76 3.96 Hgb 11.5 L 9.7 L Hct 35.8 L 29.8 L MCV 75 L 75 L MCH 24.1 L 24.6 L MCHC 32.0 32.6 RDW 17.3 H 17.0 H Plt Count 235 216 Seg Neutrophils % 77.3 Lymphocytes % 10.7 L Monocytes % 9.8 Eosinophils % 0.8 Basophils % 1.4 Absolute Neutrophils 8.3 H Absolute Lymphocytes 1.1 Absolute Monocytes 1.0 Absolute Eosinophils 0.1 Absolute Basophils 0.1 Sodium 134.8 L Potassium 4.3 Chloride 106 Carbon Dioxide 23 Anion Gap 6 BUN 9 Creatinine 0.62 Est GFR ( Amer) > 60 Est GFR (Non-Af Amer) > 60 Glucose 69 L Uric Acid 5.8 Calcium 9.2 Total Bilirubin 0.5 AST 20 ALT 19 Alkaline Phosphatase 193 H Total Protein 6.5 Albumin 3.3 L Assessment and Plan(PN) - Assessment and Plan (1) Advanced maternal age (AMA), 40 years or greater Is this a current diagnosis for this admission?: Yes (2) Multiple sclerosis complicating Qualifiers: Trimester: first trimester Qualified Code(s): O99.351 - Diseases of the nervous system complicating , first trimester; G35 - Multiple sclerosis Is this a current diagnosis for this admission?: Yes (3) S/P primary low transverse Is this a current diagnosis for this admission?: Yes (4) intolerance to labor, delivered, current hospitalization Is this a current diagnosis for this admission?: Yes (5) Gestational hypertension Qualifiers: Trimester: first trimester Qualified Code(s): O13.1 - Gestational [-induced] hypertension without significant proteinuria, first trimester Is this a current diagnosis for this admission?: Yes - Time Spent with Patient Time with patient: Less than 15 minutes Medications reviewed and adjusted accordingly: Yes - Disposition Anticipated Discharge: Home Within: within 24 hours
[2019-03-28] MEDS ORDERED: IBUPROFEN 800 MG TABLET PO SCH (15:00)
[2019-03-28] MEDS ORDERED: IBUPROFEN 800 MG TABLET ONE (17:00)
[2019-03-28] MEDS: IBUPROFEN 800 MG TABLET PO SCH ×2 (17:05→23:26)
[2019-03-28] MEDS: OXYCODONE-ACETAMINOPHEN 5-325 MG TABLET PO PRN (22:00)
[2019-03-29] MEDS: OXYCODONE-ACETAMINOPHEN 5-325 MG TABLET PO PRN ×2 (04:40→15:00)
[2019-03-29] MEDS: IBUPROFEN 800 MG TABLET PO SCH ×4 (05:18→23:14)
[2019-03-29 07:08] LABS: HEMATOCRIT 27.7 % (36.0-47.0); HEMOGLOBIN 8.8 g/dL (12.0-15.5); MEAN CORPUSCULAR HEMOGLOBIN 24.2 pg (27.0-33.4); MEAN CORPUSCULAR VOLUME 76 fl (80-97); PLATELET COUNT 214 10^3/uL (150-450); RED BLOOD COUNT 3.65 10^6/uL (3.72-5.28); RED CELL DISTRIBUTION WIDTH 17.3 % (11.5-14.0)
--- NOTE | 2019-03-29 10:19 | PDOC PROGRESS REPORT ---
Subjective-OB Progress Note for:: 03/29/19 Subjective: reports bleeding slowing, pain not completely controlled but she is trying to get her medication regimen going with the help of her sister and her nurses. + passing gas, formula feeding Physical Exam (OB) Vital Signs: Temp Pulse Resp BP Pulse Ox 98.1 F 77 16 136/62 H 96 03/29/19 07:08 03/29/19 07:08 03/29/19 07:08 03/29/19 07:08 03/29/19 07:08 Intake & Output 03/28/19 03/29/19 03/30/19 06:59 06:59 06:59 Intake Total 1000 100 Output Total 350 Balance 650 100 - Dressing Removed: No - Optsite clean, dry, intact Incision: Dressing, Well Approximated - Abdomen Description: Tender, Soft, Round Hernia Present: No Fundal Description: Firm, Midline Fundal Height: u/u - u/2 - Extremities Lower extremities: Estefany's sign - neg Calf: Nontender - edematous Foot: Edema Objective-Diagnostic Laboratory: 03/29/19 06:31 03/27/19 14:37 03/29/19 06:31 WBC 15.0 H RBC 3.65 L Hgb 8.8 L Hct 27.7 L MCV 76 L MCH 24.2 L MCHC 32.0 RDW 17.3 H Plt Count 214 Assessment and Plan(PN) - Assessment and Plan (1) Advanced maternal age (AMA), 40 years or greater Is this a current diagnosis for this admission?: Yes (2) intolerance to labor, delivered, current hospitalization Is this a current diagnosis for this admission?: Yes (3) Gestational hypertension Is this a current diagnosis for this admission?: Yes (4) Multiple sclerosis complicating Qualifiers: Trimester: first trimester Qualified Code(s): O99.351 - Diseases of the nervous system complicating , first trimester; G35 - Multiple sclerosis Is this a current diagnosis for this admission?: Yes (5) S/P primary low transverse Is this a current diagnosis for this admission?: Yes - Time Spent with Patient Time with patient: Less than 15 minutes Medications reviewed and adjusted accordingly: Yes - Disposition Anticipated Discharge: Home Within: within 24 hours - lasix today and tomorrow, encouraged to get up out of bed
[2019-03-29] MEDS: DOCUSATE SODIUM 100 MG CAPSULE PO SCH ×2 (12:57→17:34)
[2019-03-29] MEDS: FUROSEMIDE 20 MG TABLET PO SCH (12:58)
[2019-03-29] MEDS: ENOXAPARIN SODIUM INJ 40 MG/0.4 ML DISP.SYRIN SUBCUT SCH (15:46)
[2019-03-29] MEDS: PRENATAL VITAMIN W DHA CAPSULE PO SCH (15:47)
[2019-03-30] MEDS: OXYCODONE-ACETAMINOPHEN 5-325 MG TABLET PO PRN ×2 (04:19→09:32)
[2019-03-30] MEDS: IBUPROFEN 800 MG TABLET PO SCH ×2 (05:08→11:45)
[2019-03-30] MEDS: FUROSEMIDE 20 MG TABLET PO SCH (09:22)
[2019-03-30] MEDS: DOCUSATE SODIUM 100 MG CAPSULE PO SCH (09:22)
[2019-03-30] MEDS: ENOXAPARIN SODIUM INJ 40 MG/0.4 ML DISP.SYRIN SUBCUT SCH (09:49)
[2019-03-30] MEDS: PRENATAL VITAMIN W DHA CAPSULE PO SCH (09:50)
--- NOTE | 2019-03-30 10:45 | PDOC DISCHARGE SUMMARY ---
Addendum entered and electronically signed by MIGUELA NGEL LUCIANO CNM 03/30/19 10:55: Final Diagnosis Discharge Date: 03/30/19 - Final Diagnosis (1) Advanced maternal age (AMA), 40 years or greater Is this a current diagnosis for this admission?: Yes (2) intolerance to labor, delivered, current hospitalization Is this a current diagnosis for this admission?: Yes (3) Gestational hypertension Is this a current diagnosis for this admission?: Yes (4) Multiple sclerosis complicating Is this a current diagnosis for this admission?: Yes (5) S/P primary low transverse Is this a current diagnosis for this admission?: Yes (6) Anemia due to acute blood loss Is this a current diagnosis for this admission?: Yes Original Note: Final Diagnosis Discharge Date: 03/30/19 - Final Diagnosis (1) Advanced maternal age (AMA), 40 years or greater Is this a current diagnosis for this admission?: Yes (2) intolerance to labor, delivered, current hospitalization Is this a current diagnosis for this admission?: Yes (3) Gestational hypertension Is this a current diagnosis for this admission?: Yes (4) Multiple sclerosis complicating Is this a current diagnosis for this admission?: Yes (5) S/P primary low transverse Is this a current diagnosis for this admission?: Yes Discharge Data - Discharge Medication Home Medications: Aspirin [Aspirin 81 mg Chewable Tablet] 81 mg PO DAILY 03/02/19 Ferrous Sulfate [Iron] 1 tab PO DAILY 03/02/19 No122/Iron/Folic Acid [ Multi Tablet] 1 tab PO DAILY 03/02/19 Labetalol HCl 1 tab PO BID 03/26/19 Reason(s) for Admission: Induction of Labor, Other Procedures: NST, Management of Obstetric Complications Intrapartum Procedure(s): : Low Cervical, Transverse - Diagnosis Test Laboratory: Temp Pulse Resp BP Pulse Ox 98.5 F 80 18 143/81 H 96 03/30/19 07:16 03/30/19 07:16 03/30/19 07:16 03/30/19 07:16 03/30/19 07:16 03/26/19 03/27/19 03/27/19 23:06 04:05 14:37 RBC 4.55 4.76 Hgb 10.9 L 11.5 L Hct 34.0 L 35.8 L Urine Opiates Screen NEGATIVE 03/28/19 03/29/19 06:50 06:31 RBC 3.96 3.65 L Hgb 9.7 L 8.8 L Hct 29.8 L 27.7 L Urine Opiates Screen - Discharge information/Instructions Discharge Activity: Balance Activity w/Rest, Keep Legs Elevated, No Lifting Over 10 Pounds, No Lifting/Push/Pulling, Pelvic Rest, No tub bath Discharge Diet: Regular Disposition: HOME, SELF-CARE Follow up with: [facility] in: 4, Days
[2019-03-30 11:51] VITALS: BP 103/64
== END 2019-03-30 14:20 | disposition home or self-care (01) | DRG 784 ==
LOC: LR 22:30 → 2S 03-27 21:01
PROVIDERS: ADMIT Obstetrics & Gynecology; ATTEND Obstetrics & Gynecology
PROC: 10D00Z1 Extraction of Products of Conception, Low, Open Approach (ICD-10-PCS; principal; 2019-03-27)
PROC: 0UB70ZZ Excision of Bilateral Fallopian Tubes, Open Approach (ICD-10-PCS; 2019-03-27)
DX: O76 Abnormality in fetal heart rate and rhythm complicating labor and delivery (principal); O99.354 Diseases of the nervous system complicating childbirth; D62 Acute posthemorrhagic anemia; O13.4 Gestational [pregnancy-induced] hypertension without significant proteinuria, complicating childbirth; G35 Multiple sclerosis; O90.81 Anemia of the puerperium; O34.13 Maternal care for benign tumor of corpus uteri, third trimester; Z3A.40 40 weeks gestation of pregnancy; Z37.0 Single live birth
CPT/HCPCS: 1961; 36415; 59025; 80053; 80307; 83615; 84550; 85025; 85027; 86592; 86850; 86900; 86901; 88302; 88307; 90715; 94760; 94799; J0131; J0456; J1885; J2370; J2590; J3010; J3490; J7120